=== PATIENT | male | born 1995 | race Caucasian/White ===

== ENCOUNTER 2016-05-20 12:41 | Emergency (ER) | payer MEDICAID ==
[~2016-05-20] VITALS: Ht 177.8 cm; Wt 73.0 kg
[2016-05-20 13:47] VITALS: BP 128/71
--- NOTE | 2016-05-20 14:28 | NUR ---
PT TAKEN TO BED 7.
--- NOTE | 2016-05-20 14:41 | NUR ---
20/M presents to ED for evaluation of diarrhea x2 days accompanied with N/V. Pt also has complaints of left upper thigh x2 months. Pt denies any injury or trauma. Pt c/o on and off pain 08/13. Pt has no discoloration, no deformities noted. Pt is AOX4, skin warm and dry, normal in color for ethnicity. No vomiting today or while in the ED. Pt ambulates with steady gait. VSS.
--- NOTE | 2016-05-20 14:57 | NUR ---
Pt being evaluating by ROSA Horan
[2016-05-20] MEDS ORDERED: ONDANSETRON 4 MG ODT PO ONE (15:10)
--- NOTE | 2016-05-20 16:05 | NUR ---
Patient is requesting a work note to return back to work.
--- NOTE | 2016-05-20 16:37 | NUR ---
Patient discharged with v/s stable. Written and verbal after care instructions given and explained. Patient alert, oriented and verbalized understanding of instructions. Ambulatory with steady gait. All questions addressed prior to discharge. ID band removed. Patient advised to follow up with PMD. Rx of LOPERAMIDE HYROCHLORIDE, ZOFRAN ODT, AND IBUPROFEN given. Patient educated on indication of medication including possible reaction and side effects. Opportunity to ask questions provided and answered.
[2016-05-20 16:38] VITALS: BP 123/73
== END 2016-05-20 16:37 | disposition home or self-care (01) ==
LOC: MED 12:41
DX: R11.10 Vomiting, unspecified (principal); R19.7 Diarrhea, unspecified; M79.652 Pain in left thigh; R10.9 Unspecified abdominal pain
CPT/HCPCS: 99283; S0119

== ENCOUNTER 2016-07-30 22:45 | Emergency (ER) | payer BC, MEDICAID ==
[~2016-07-30] VITALS: Ht 177.8 cm; Wt 74.8 kg
[2016-07-30 23:13] VITALS: BP 139/76
--- NOTE | 2016-07-31 00:55 | NUR ---
PT TAKEN TO BED 8
--- NOTE | 2016-07-31 01:00 | NUR ---
PT IS 20/M BIB MOTHER TO ED WITH C/O RT ANKLE PAIN AND SWELLING, S/P JUMPING SINCE 220. DENIES N/V/D; SKIN IS PINK/WARM/DRY; AAOX4 WITH EVEN AND STEADY GAIT; LUNGS CLEAR BL; HR EVEN AND REGULAR; PT DENIES ANY FEVER, CP, SOB, OR COUGH AT THIS TIME; PATIENT STATES PAIN OF 7/10 AT THIS TIME; VSS; PATIENT POSITIONED FOR COMFORT; HOB ELEVATED; BEDRAILS UP X2; BED DOWN. ER MD MADE AWARE OF PT STATUS.
--- NOTE | 2016-07-31 01:14 | NUR ---
Dr. Nichols evaluating patient at bedside.
[2016-07-31 01:35] VITALS: BP 125/81
== END 2016-07-31 01:35 | disposition home or self-care (01) ==
LOC: MED 22:45
DX: S93.401A Sprain of unspecified ligament of right ankle, initial encounter (principal); X58.XXXA Exposure to other specified factors, initial encounter; Y93.89 Activity, other specified; Y92.89 Other specified places as the place of occurrence of the external cause; Y99.8 Other external cause status

== ENCOUNTER 2017-06-04 22:11 | Emergency (ER) | payer BC, MEDICAID ==
[~2017-06-04] VITALS: Ht 177.8 cm; Wt 77.1 kg
[2017-06-04 22:21] VITALS: BP 117/63
--- NOTE | 2017-06-04 22:30 | NUR ---
21/M CAME IN WITH FRIEND, C/O SORETHROAT, BODY ACHES, CHILLS, REPORTED FEVER, GENERALIZED WEAKNESS, SINCE YESTERDAY AM. PT REPORTS TAKING DAYQUIL AND NYQUIL, LAST TAKEN 2 HOURS AGO WITH LITTLE RELIEF. PT REPORTS VOMITING X2 TODAY, REPORTS PRODUCTIVE COUGH WITH BROWN/YELLOW MUCUS. LBM X2 HOURS. PT DENIES CP, SOB, DIARRHEA. PT DENIES PMH, RX, NKA. ER MD DR JAEGER AWARE.
[2017-06-04] MEDS ORDERED: IBUPROFEN 800 MG TAB PO ONE (22:40)
--- NOTE | 2017-06-04 22:47 | NUR ---
INFLUEZA AND STREPT SWABS COLLECTED AND BROUGHT TO LAB
[2017-06-04 23:32] VITALS: BP 117/76
--- NOTE | 2017-06-04 23:32 | NUR ---
Patient discharged with v/s stable. Written and verbal after care instructions given and explained. Patient alert, oriented and verbalized understanding of instructions. Ambulatory with steady gait. All questions addressed prior to discharge. ID band removed. Patient advised to follow up with PMD. Rx of PREDNISONE 20MG given. Patient educated on indication of medication including possible reaction and side effects. Opportunity to ask questions provided and answered.
--- NOTE | 2017-06-07 15:19 | NUR ---
PATIENT THROAT CULTURE RETURNED NEGATIVE NO FURTHER ACTION TAKEN.
== END 2017-06-04 23:32 | disposition home or self-care (01) ==
LOC: MED 22:11
DX: J02.8 Acute pharyngitis due to other specified organisms (principal)
CPT/HCPCS: 36415; 87081; 87804; 99285

== ENCOUNTER 2017-07-03 19:50 | Emergency (ER) | payer MEDICAID ==
[~2017-07-03] VITALS: Ht 177.8 cm; Wt 77.1 kg
[2017-07-03 19:55] VITALS: BP 134/77
[2017-07-03] MEDS ORDERED: IBUP-1842 PO (20:00)
--- NOTE | 2017-07-03 20:02 | NUR ---
PATIENT AMBULATED TO ER CHAIR C
--- NOTE | 2017-07-03 20:03 | NUR ---
ASSUMED CARE OF PT AT THIS TIME. 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 SKIN IS PINK/WARM/DRY; AAOX4 WITH EVEN AND STEADY GAIT; PATIENT STATES PAIN OF 8/10 AT THIS TIME; VSS; PATIENT POSITIONED FOR COMFORT; ER MD MADE AWARE OF PT STATUS.
[2017-07-03] MEDS ORDERED: KETOROLAC 60 MG/2 ML VIAL IM ONE (20:35)
--- NOTE | 2017-07-03 20:44 | NUR ---
PATIENT TAKEN TO X RAY
[2017-07-03 21:20] VITALS: BP 127/78
--- NOTE | 2017-07-03 21:20 | NUR ---
Patient discharged with v/s stable. Written and verbal after care instructions given and explained. Patient alert, oriented and verbalized understanding of instructions. Ambulatory with steady gait. All questions addressed prior to discharge. ID band removed. Patient advised to follow up with PMD. Rx of TRAMADOL AND FLEXERIL given. Patient educated on indication of medication including possible reaction and side effects. Opportunity to ask questions provided and answered.
== END 2017-07-03 21:20 | disposition home or self-care (01) ==
LOC: MED 19:50
DX: S39.012A Strain of muscle, fascia and tendon of lower back, initial encounter (principal); X58.XXXA Exposure to other specified factors, initial encounter; Y93.89 Activity, other specified; Y92.89 Other specified places as the place of occurrence of the external cause; Y99.8 Other external cause status
CPT/HCPCS: 72100; 96372; 99284; J1885

== ENCOUNTER 2019-05-08 00:26 | Emergency (ER) | payer MEDICAID ==
[~2019-05-08] VITALS: Ht 175.3 cm; Wt 81.6 kg
[~2019-05-08 00:26] MED LIST: IBUP-1842 PO
[2019-05-08 00:34] VITALS: BP 124/65
--- NOTE | 2019-05-08 00:34 | NUR ---
PT TAKEN TO BED 3
--- NOTE | 2019-05-08 00:49 | NUR ---
23 Y/O MALE PRESENTS WITH RASH ON CHEST X4 DAYS. PT BELIEVED HE HAD RING WORM ON THE RIGHT SIDE OF HIS CHEST ON MONDAY AND SELF MEDICATED WITH LOTRMIN CREAM, SINCE USE OF CREAM HE BELIEVES RASH HAS SPREAD UP TO NECK, RIGHT SIDE OF BACK AND ON TO FACE. DENIES ANY PAIN. DENIES SOB/CP. SKIN INTACT, REDNESS NOTED ON CHEST/NECK/BACK/FACE. SMALL WELTS ALSO NOTED ON REDDENED AREAS. RESP EVEN AND UNLABORED. DENIES FEVER/CHILLS, N/V/D. NO PMH NKA
--- NOTE | 2019-05-08 00:58 | NUR ---
Dr. Augustine examining patient.
[2019-05-08 01:08] VITALS: BP 124/65
--- NOTE | 2019-05-08 01:08 | NUR ---
Patient discharged with v/s stable. Written and verbal after care instructions given and explained. Patient alert, oriented and verbalized understanding of instructions. Ambulatory with steady gait. All questions addressed prior to discharge. ID band removed. Patient advised to follow up with PMD. Rx of HYDROCORTISONE AND BENADRYL WERE given. Patient educated on indication of medication including possible reaction and side effects. Opportunity to ask questions provided and answered.
== END 2019-05-08 01:08 | disposition home or self-care (01) ==
LOC: MED 00:26
DX: R21 Rash and other nonspecific skin eruption (principal); Z79.899 Other long term (current) drug therapy
CPT/HCPCS: 99282

== ENCOUNTER 2020-08-23 11:34 | Emergency (ER) | payer MEDICAID ==
[~2020-08-23] VITALS: Ht 177.8 cm; Wt 78.9 kg
[2020-08-23 11:41] VITALS: BP 131/87
[2020-08-23] MEDS ORDERED: methocarbamoL 500 MG TAB PO SCH (12:25)
[2020-08-23] MEDS ORDERED: KETOROLAC 15 MG/ML VIAL IM ONE (12:25)
[2020-08-23] MEDS ORDERED: METH750T5 PO (13:20)
[2020-08-23 13:42] VITALS: BP 131/87
== END 2020-08-23 13:41 | disposition home or self-care (01) ==
LOC: MED 11:34
DX: M25.552 Pain in left hip (principal); F12.90 Cannabis use, unspecified, uncomplicated; Z79.899 Other long term (current) drug therapy
CPT/HCPCS: 73502; 96372; 99283; J1885